=== PATIENT | male | born 1975 | race Caucasian/White ===

== ENCOUNTER 2022-01-03 07:28 | Observation (INO) | payer BC ==
[~2022-01-03] VITALS: Ht 165.1 cm; Wt 87.0 kg
[2022-01-03] VITALS (18 sets, daily range): BP systolic 127–191; BP diastolic 69–96
[~2022-01-03 07:28] MED LIST: AMIO200T53 PO; AMIO400T5 PO; ATOR10TA PO; ATOR20TA58 PO; FAMO20TA5 PO; METO50TA4 PO
[2022-01-03] MEDS ORDERED: ceFAZolin SODIUM IV Push 1 GM VIAL. IVP ONE (08:15)
[2022-01-03] MEDS ORDERED: LIDOCAINE 2%/EPI 1:100,000 20 ML VIAL. ONE (08:16)
[2022-01-03] MEDS ORDERED: MIDAZOLAM HCL/PF 5 MG/5 ML VIAL. ONE (08:17)
[2022-01-03] MEDS ORDERED: fentaNYL PF VIAL 100 MCG/2 ML VIAL ONE (08:17)
[2022-01-03] MEDS ORDERED: LIDOCAINE 1%/EPI 1:100,000 20 ML VIAL. SQ ONE (08:30)
[2022-01-03] MEDS ORDERED: MIDAZOLAM HCL/PF 5 MG/5 ML VIAL. IV ONE (08:30)
[2022-01-03] MEDS ORDERED: fentaNYL PF VIAL 100 MCG/2 ML VIAL IV ONE (08:30)
--- NOTE | 2022-01-03 08:44 | PDOC1 ---
History and Physical Visit Information Date of Admission: January 03, 2022 at 07:28 Source: Patient History of Present Illness History of Present Illness Beto is a pleasant 46-year-old man who underwent a ICD implantation in the setting of cardiac arrest and was ultimately diagnosed with hypertrophic cardiomyopathy. After his ICD implantation he had wound dehiscence at the lateral edge of the ICD pocket but no obvious pocket infection. The patient has not had any fevers or chills. He has been treated with linezolid after the initial episode and initial attempts to save the wound dehiscence with stitches and Steri-Strips has not been successful and there is some mild purulent drainage in the external aspect of the incision and therefore decision was made to explant the device to decrease the risk of future infection. Patient denies any chest pain, dyspnea, orthopnea or fevers or chills. He has not had any redness or drainage from the incisional site. Past Medical History Comments As noted above Current Medications Current Medications Current Medications Cefazolin Sodium (Ancef) 2 gm 1X ONCE IVP ; Start 01/03/22 at 08:15; Stop 01/03/22 at 08:16; Status UNV Cefazolin Sodium/ Dextrose 50 ml @ 100 mls/hr 1X ONCE IV ; Start 01/03/22 at 08:30; Stop 01/03/22 at 08:59 Fentanyl Citrate (Fentanyl 2ml Vial) 100 mcg 1X ONCE IV ; Start 01/03/22 at 08:30; Stop 01/03/22 at 08:31; Status DC Lidocaine/ Epinephrine (LIDOCAINE 1%-EPI 1:100,000 Multi-Dose) 20 ml 1X ONCE SQ ; Start 01/03/22 at 08:30; Stop 01/03/22 at 08:31; Status DC Midazolam HCl (Versed) 5 mg 1X ONCE IV ; Start 01/03/22 at 08:30; Stop 01/03/22 at 08:31; Status DC Vancomycin HCl 1 gm/Sodium Chloride 250 ml @ 250 mls/hr Q12H IV ; Start 01/03/22 at 08:30; Status UNV Allergies Allergies Allergies Coded Allergies Type Severity Reaction Last Updated Verified No Known Drug Allergies 12/04/21 No Social History Comments No alcohol, tobacco or illicit drug use Family History Comments Positive for hypertrophic cardiomyopathy ROS Review of System Negative for 10 out of 14 systems reviewed unless otherwise mentioned above in HPI Physical Exam Comments The patient appeared well nourished and normally developed. Head exam is unremarkable. No scleral icterus or corneal arcus noted. Neck is without jugular venous distension, thyromegaly, or carotid bruits. Carotid upstrokes are brisk bilaterally. Lungs are clear to auscultation and percussion. Cardiac exam reveals the PMI to be normally sized and situated. Rhythm is regular. First and second heart sounds normal. No murmurs, rubs or gallops. Abdominal exam reveals normal bowel sounds, no masses, no organomegaly and no aortic enlargement. Extremities are nonedematous and both femoral and pedal pulses are normal. Msk: No traumua Neuro: No focal deficits The lateral aspect of the ICD incision approximately 0.25 in in length has not approximated. There is minimal purulent drainage upon expression from the lateral edge of the wound. No obvious hematoma, fluid collection noted. The ICD pocket was probed but the ICD was unable to be reached. ECG EKG: NSR VTE Prophylaxis Ordered VTE Prophylaxis Devices: No VTE Pharmacological Prophylaxi: No Assessment/Plan Assessment/Plan 1. Cardiac arrest in the setting of a history of hypertrophic cardiomyopathy 2. Prior history of dual-chamber Medtronic ICD with lateral wound edge dehiscence requiring explantation. Plan is for complete explantation of the generator and leads with subsequent placement of a LifeVest device and referral to [facility] at their advanced hypertrophic cardiomyopathy clinic for consideration of MRI and subcutaneous ICD. Discussed case with Dr. Babin at [facility]. Justicifation of Admission Dx: Justifications for Admission: Justification of Admission Dx: Yes GOPAL WONG MD January 03, 2022 08:44
[2022-01-03] MEDS ORDERED: FAMO20TA5 PO (10:47)
[2022-01-03] MEDS ORDERED: AMIO200T53 PO (10:47)
[2022-01-03 11:30] LABS: BASO # 0.1 x10^3/uL (0.0-0.2); BASO % 1 % (0-3); EOS # 0.1 x10^3/uL (0.0-0.7); EOS % 2 % (0-3); HEMATOCRIT 47.8 % (39.0-53.0); HEMOGLOBIN 16.3 g/dL (13.0-17.5); LYMPH # 1.1 x10^3/uL (1.0-4.8); LYMPH % 16 % (24-48); MEAN CORPUSCULAR HEMOGLOBIN 31 pg (25-35); MEAN CORPUSCULAR HGB CONC 34 g/dL (31-37); MEAN CORPUSCULAR VOLUME 90 fL (79-100); MONO # 0.9 x10^3/uL (0.0-1.1); MONO % 13 % (0-9); NEUT # 4.8 x10^3/uL (1.8-7.7); NEUT % 69 % (31-73); PLATELET COUNT 141 x10^3/uL (140-400); RED BLOOD COUNT 5.33 x10^6/uL (4.30-5.70); RED CELL DISTRIBUTION WIDTH 13.7 % (11.5-14.5)
[2022-01-03] MEDS ORDERED: HYDROcodone/APAP 5/325MG 1 TAB TABLET PO PRN (11:30)
[2022-01-03] MEDS ORDERED: 0.9 % SODIUM CHLORIDE 10 ML DISP.SYRIN. IV PRN (11:30)
[2022-01-03] MEDS ORDERED: MAG HYDROX/ALUMINUM HYD/SIMETH 30 ML ORAL.SUSP PO PRN (11:30)
[2022-01-03] MEDS ORDERED: ONDANSETRON PF 4 MG/2 ML VIAL. IVP PRN (11:30)
[2022-01-03] MEDS ORDERED: ACETAMINOPHEN 325 MG TABLET. PO PRN (11:30)
--- NOTE | 2022-01-03 11:40 | NUR ---
Patient arrived to floor as a direct admit from home around 0745. director labor standards notified & came & got patient around 0830. Patient back around 1000 after getting AICD removed. Admission completed on floor after procedure. Patient A&OX4. No complaints of pain. VSS. at bedside. Will continue to monitor.
--- NOTE | 2022-01-03 11:42 | NUR ---
SS following for discharge planning. SS reviewed pt chart and discussed with pt RN. Pt is from home and is currently requiring oxygen at two liters nasal canula. Pt on IV Vancomycin. Cardiology following. Order for Life Vest received. Order and clinical sent to [facility] Life Vest, ; fax [phone]. SS will continue to follow for discharge planning.
[2022-01-03 11:44] LABS: CALCIUM 8.3 mg/dL (8.5-10.1); GFR 80.8; POTASSIUM 4.2 mmol/L (3.5-5.1)
[2022-01-03] MEDS: AMIODARONE HCL 200 MG TABLET. PO SCH (12:39)
[2022-01-03] MEDS: METOPROLOL SUCC 24HR ER 50 MG TAB.ER.24H. PO SCH (12:39)
--- NOTE | 2022-01-03 13:29 | EKG ---
[facility] [address] [place] [address] Test Date: 2022-01-03 Test Time: 13:25:19 Pat Name: CARY ESPINOZA Department: Room: [facility] Gender: M [employer] Log[employer] Operator: WILLIE : 1975 Requested By: ANA GARCIA Order Number: [id number] Reading MD: Flaco Arteaga MD Measurements Intervals [place] Rate: 73 P: 37 IN: 170 QRS: -16 QRSD: 114 T: 88 QT: 442 QTc: 491 Interpretive Statements SINUS RHYTHM LEFT ATRIAL ABNORMALITY LEFTWARD AXIS LVH WITH REPOLARIZATION ABNORMALITY PROLONGED QT Electronically Signed On 01-07-2022 9:04:26 CDT by Flaco Arteaga MD
--- NOTE | 2022-01-03 14:56 | CARD ---
MR#: [id number] Date of Study: 01/03/2022 Ordering Physician: GOPAL WONG, Referring Physician: GOPAL WONG, Tech: APPROVED REPORT EXAM FL TIME: 1.1 MIN DOSE: 3 GYCM2 MODERATE SEDATION: 70 MINS EXPLANTED DEVICES Reason for procedure: Wound dehiscence at the lateral edge of pacemaker/ICD insertion site Clinical information: 46-year-old male who originally presented in November for cardiac arrest and ultimately diagnosed with h ypertrophic cardiomyopathy had a dual-chamber Medtronic ICD placed via the left subclavian approach. At his wound check there was note of a lateral minimal wound dehiscence which was attempted to be tr eated with medications and Steri-Strips and suturing but unfortunately the wound did not have adequat e apposition. The patient did not have any fevers or chills throughout the course of the postprocedu ral state. He was treated with 10 days of linezolid. After failure of antibiotics and suturing to h elp with apposition of the wound and due to minimal purulent drainage from the wound site a decision was made to explant the device to decrease the risk of future infection. Procedure details: After appropriate informed consent the left chest was prepped and draped in usual sterile fashion. T he patient received preprocedural antibiotics. Under 1% lidocaine local anesthesia the previous incis ion was then opened. The ICD and leads were removed and the lead tips were sent for culture. Of not e, the pocket and the remainder of the incision was free of any infection. No obvious infectious josiane inage was noted from the incision. The incision was then closed in 3 layers. Steri-Strips were appl ied and sterile dressing was applied. No acute complications CONCLUSION 1. Successful explantation of dual-chamber ICD for rare but expected complication of pocket infectio n. Signed by : Gopal Wong, Electronically Approved : 01/03/2022 14:56:15
[2022-01-03] MEDS ORDERED: FAMOTIDINE 20 MG TABLET. PO SCH (17:00)
[2022-01-03] MEDS: VANCOMYCIN 1 GM in IV NORMAL SALINE 250ML 250 ML IV SCH (17:20)
[2022-01-04 03:02] VITALS: BP 126/74
[2022-01-04] MEDS: VANCOMYCIN 1 GM in IV NORMAL SALINE 250ML 250 ML IV SCH (05:36)
[2022-01-04 07:00] VITALS: BP 176/96
[2022-01-04] MEDS: METOPROLOL SUCC 24HR ER 50 MG TAB.ER.24H. PO SCH (08:32)
[2022-01-04] MEDS: AMIODARONE HCL 200 MG TABLET. PO SCH (08:32)
--- NOTE | 2022-01-04 10:53 | PDOC3 ---
ANA GARCIA CRYPTOLOGIST 01/04/22 1053: Discharge Summary Visit Information Date of Admission: January 03, 2022 Date of Discharge: January 04, 2022 Admitting Diagnosis: Infected AICD, Hx of HOACM and VT cardiac arrest Final Diagnosis S/P AICD removal, Infected AICD, Hx of HOACM and VT cardiac arrest Brief Hospital Course Allergies Allergies Coded Allergies Type Severity Reaction Last Updated Verified wool Allergy Intermediate 01/04/22 Yes morphine Allergy Mild Anxiety 01/03/22 Yes Vital Signs Vital Signs Date Time Temp Pulse Resp B/P (MAP) Pulse Ox O2 Delivery O2 Flow Rate FiO2 01/04/22 08:32 60 176/96 01/04/22 07:00 97.7 18 98 Room Air 97.7 01/03/22 11:00 2.0 Lab Results Laboratory Tests Test 01/03/22 10:30 White Blood Count 7.0 x10^3/uL (4.0-11.0) Red Blood Count 5.33 x10^6/uL (4.30-5.70) Hemoglobin 16.3 g/dL (13.0-17.5) Hematocrit 47.8 % (39.0-53.0) Mean Corpuscular Volume 90 fL (79-100) Mean Corpuscular Hemoglobin 31 pg (25-35) Mean Corpuscular Hemoglobin Concent 34 g/dL (31-37) Red Cell Distribution Width 13.7 % (11.5-14.5) Platelet Count 141 x10^3/uL (140-400) Neutrophils (%) (Auto) 69 % (31-73) Lymphocytes (%) (Auto) 16 % (24-48) Monocytes (%) (Auto) 13 % (0-9) Eosinophils (%) (Auto) 2 % (0-3) Basophils (%) (Auto) 1 % (0-3) Neutrophils # (Auto) 4.8 x10^3/uL (1.8-7.7) Lymphocytes # (Auto) 1.1 x10^3/uL (1.0-4.8) Monocytes # (Auto) 0.9 x10^3/uL (0.0-1.1) Eosinophils # (Auto) 0.1 x10^3/uL (0.0-0.7) Basophils # (Auto) 0.1 x10^3/uL (0.0-0.2) Sodium Level 142 mmol/L (136-145) Potassium Level 4.2 mmol/L (3.5-5.1) Chloride Level 105 mmol/L (98-107) Carbon Dioxide Level 25 mmol/L (21-32) Anion Gap 12 (6-14) Blood Urea Nitrogen 14 mg/dL (8-26) Creatinine 1.0 mg/dL (0.7-1.3) Estimated GFR (Cockcroft-Gault) 80.8 Glucose Level 104 mg/dL (70-99) Calcium Level 8.3 mg/dL (8.5-10.1) Brief Hospital Course Mr. Rios is a 46 yo male admitted for planned AICD removal. Hx of VT arrest and HOCM. This extracted without any complications and cultures are pending. Left chest incision is intact with steristrips intact and no ozzing. No erythema around site. Denies chest pain or SOA. Ambulatory without difficulty. AOx3, LSCTA, SR without significnat ectopies. Lifevest is in place. Abd is soft and nontender without any peripheral edema. He is referred to [facility] for SQ ICD. Continue amiodarone 400 mg po daily and toprol. Wound care as instructed. Follow up in office next week for wound check. Zyvox called in at [facility] since it is not available at his regular pharmacy. He already finished 10 day supply of zyvox so he will need 5 more days worth. Discharge Information Condition at Discharge: Stable Disposition/Orders: D/C to Home Scheduled Amiodarone Hcl (Amiodarone Hcl) 200 Mg Tablet, 400 MG PO DAILY for Hx of VT for 30 Days, #60 Ref 3 Prescribed by: ANA GARCIA on 01/04/222 Famotidine (Famotidine) 20 Mg Tablet, 20 MG PO DAILYWSUP for gerd, (Reported) Entered as Reported by: GHANSHYAM HASSAN on 01/03/22 1047 Last Action: Continued on 01/03/221125 by ANA GARCIA Linezolid (Zyvox) 600 Mg Tablet, 600 MG PO BID for infected AICD for 5 Days, #10 Ref 0 Prescribed by: ANA GARCIA on 01/04/222 Metoprolol Succinate (Toprol XL) 50 Mg Tab.er.24h, 25 MG PO DAILY for FOR HYPERTENSION for 30 Days, #15 Prescribed by: RAZ SRIVASTAVA on 12/05/21 0845 Last Action: Continued on 01/03/221125 by ANA GARCIA Discontinued Medications Amiodarone Hcl (Amiodarone Hcl) 400 Mg Tablet, 1 TAB PO BID for ANTIARRYTHMIC for 2 Days, #5 Ref 0 (Reported) TAKE 400 MG 12/05/21 EVENING, 12/06/21 MORNING AND EVENING, 12/07/21 MORNING AND EVENING STARTING 12/08/21 TAKE 400 MG DAILY Discontinued Reason: Prescription changed Entered as Reported by: MAURICIO WONG on 12/05/21 1004 Amiodarone Hcl (Amiodarone Hcl) 200 Mg Tablet, 1 TAB PO DAILY for , #90 Ref 1 (Reported) Entered as Reported by: GHANSHYAM HASSAN on 01/03/221046 Last Action: Continued on 01/03/221125 by ANA GARCIA Justicifation of Admission Dx: Justifications for Admission: Justification of Admission Dx: Yes GOPAL WONG MD 01/04/22 1444: Discharge Summary Assessment Assessment The patient was seen and interviewed as well as examined at the bedside. The chart was reviewed. The case was discussed. Agree with the plan of care. Discharge Information Scheduled Amiodarone Hcl (Amiodarone Hcl) 200 Mg Tablet, 400 MG PO DAILY for Hx of VT for 30 Days, #60 Ref 3 Prescribed by: ANA GARCIA on 01/04/221121 Famotidine (Famotidine) 20 Mg Tablet, 20 MG PO DAILYWSUP for gerd, (Reported) Entered as Reported by: GHANSHYAM HASSAN on 01/03/22 104 Last Action: Continued on 01/03/221125 by ANA GARCIA Linezolid (Zyvox) 600 Mg Tablet, 600 MG PO BID for infected AICD for 5 Days, #10 Ref 0 Prescribed by: ANA GARCIA on 01/04/221121 Metoprolol Succinate (Toprol XL) 50 Mg Tab.er.24h, 25 MG PO DAILY for FOR HYPERTENSION for 30 Days, #15 Prescribed by: RAZ SRIVASTAVA on 12/05/21 0845 Last Action: Continued on 01/03/221125 by ANA GARCIA Discontinued Medications Amiodarone Hcl (Amiodarone Hcl) 400 Mg Tablet, 1 TAB PO BID for ANTIARRYTHMIC for 2 Days, #5 Ref 0 (Reported) TAKE 400 MG 12/05/21 EVENING, 12/06/21 MORNING AND EVENING, 12/07/21 MORNING AND EVENING STARTING 12/08/21 TAKE 400 MG DAILY Discontinued Reason: Prescription changed Entered as Reported by: MAURICIO WONG on 12/05/21 1004 Amiodarone Hcl (Amiodarone Hcl) 200 Mg Tablet, 1 TAB PO DAILY for , #90 Ref 1 (Reported) Entered as Reported by: GHANSHYAM HASSAN on 01/03/22 1047 Last Action: Continued on 01/03/221125 by ANA HENSON APRN January 04, 2022 10:53 GOPAL WONG MD January 04, 2022 14:44
[2022-01-04 11:00] VITALS: BP 163/88
[2022-01-04] MEDS ORDERED: LINE600T12 PO (11:22)
[2022-01-04] MEDS ORDERED: AMIO200T53 PO (11:22)
== END 2022-01-04 11:52 | disposition home or self-care (01) ==
LOC: INTOOBSV 07:28 → 6 SOUTH 07:28
PROVIDERS: ADMIT Internal Medicine Cardiovascular Disease; ATTEND Internal Medicine Cardiovascular Disease
DX: I42.1 Obstructive hypertrophic cardiomyopathy (principal); I10 Essential (primary) hypertension; I46.9 Cardiac arrest, cause unspecified; K21.9 Gastro-esophageal reflux disease without esophagitis; T82.7XXA Infection and inflammatory reaction due to other cardiac and vascular devices, implants and grafts, initial encounter; T81.30XA Disruption of wound, unspecified, initial encounter; I42.2 Other hypertrophic cardiomyopathy; Z79.899 Other long term (current) drug therapy; Y83.1 Surgical operation with implant of artificial internal device as the cause of abnormal reaction of the patient, or of later complication, without mention of misadventure at the time of the procedure
CPT/HCPCS: 33241; 33244; 36415; 80048; 85025; 87071; 93005; 96365; 96366; 99152; 99153; G0378; G0379; J0690; J2250; J3010; J3370; J3490; J7050; J7030